=== PATIENT | female | born 1970 | race Caucasian/White ===

== ENCOUNTER 2020-03-18 04:51 | Day surgery (SDC) | payer OTHER ==
--- OUTSIDE RECORDS SUMMARY | 2020-03-17 13:01 | XMS ---
:1970 Author Organization [facility] Name Relationship Address Phone [facility] Unavailable [address] [place] [address] KOFI LEBRON [address] [facility] [place] [address] Re-disclosure Warning The records that you are about to access may contain information from federally- assisted alcohol or drug abuse programs. If such information is present, then the following federally mandated warning applies: This information has been disclosed to you from records protected by federal confidentiality rules (42 CFR part 2). The federal rules prohibit you from making any further disclosure of this information unless further disclosure is expressly permitted by the written consent of the person to whom it pertains or as otherwise permitted by 42 CFR part 2. A general authorization for the release of medical or other information is NOT sufficient for this purpose. The Federal rules restrict any use of the information to criminally investigate or prosecute any alcohol or drug abuse patient.The records that you are about to access may contain highly sensitive health information, the redisclosure of which is protected by Article 27-F of the [facility] Public Health law. If you continue you may haveaccess to information: Regarding HIV / AIDS; Provided by facilities licensed or operated by the [facility] Office of Mental Health; or Provided by the [facility] Office for People With Developmental Disabilities. If such information is present, then the following [facility] mandated warning applies: This information has been disclosed to you from confidential records which are protected by state law. State law prohibits you from making any further disclosure of this information without the specific written consent of the person to whom it pertains, or as otherwise permitted by law. Any unauthorized further disclosure in violation of state law may result in a fine or assisted sentence or both. A general authorization for the release of medical or other information is NOT sufficient authorization for further disclosure. Insurance Providers Payer name Policy type Policy ID Covered Covered libertarian's Policy P katty / Coverage libertarian ID relationship to [facility] type simmons [employer] [id number] SP [id number] 02 HEALTHCARE PPO 2 Results ID Date Data Source [id number] 03/13/2020 09:17:00 AM EDT [facility] Name Value Range Interpretation Description Data Sup porting Code Source(s) Document(s ) SARS [facility] coronavirus 2 RNA This lab was ordered by [facility] and reported by [facility]. ID Date Data Source [id number] 03/12/2020 11:15:00 AM EDT [facility] FASTING: UNKNOWNReceived: 03/12/2020 at 05:45:00 QTE: [facility], [place], [address], Vahe Weber MD Received: 03/12/2020 at 05:45:00 QTE : [facility], [address]Vahe MD Received: 03/12/2020 at 05:45:00 QTE : [facility], [address], Vahe Weber MD Received: 03/12/2020 at 05:45:00 QTE : [facility], [address]Vahe MD Received: 03/12/2020 at 05:45:00 QTE : [facility], [address]Vahe MD Received: 03/12/2020 at 05:45:00 QTE : [facility], [address]Vahe MD Received: 03/12/2020 at 05:45:00 QTE : [facility], [address]Vahe MD Received: 03/12/2020 at 05:45:00 QTE : [facility], [address], [place], [address], Vahe Weber MD Received: 03/12/2020 at 05:45:00 QTE : [facility], [address], [place], [address], Vahe Weber MD Received: 03/12/2020 at 05:45:00 QTE : [facility], [address], [place], [address], Vahe Weber MD Received: 03/12/2020 at 05:45:00 QTE : [facility], [address], [place], [address], Vahe Weber MD Received: 03/12/2020 at 05:45:00 QTE : [facility], [address], [place], [address], Vahe Weber MD Received: 03/12/2020 at 05:45:00 QTE : [facility], [address], [place], [address], Vahe Weber MDDNR Name Value Range Interpretation Code Description Data Lily rce(s) Supporting Document(s ) ID Date Data Source [id number] 03/12/2020 11:15:00 AM EDT [facility] FASTING: UNKNOWNReceived: 03/12/2020 at 05:45:00 QTE: [facility], [address], [place], [address], Vahe Weber MD Received: 03/12/2020 at 05:45:00 QTE : [facility], [address], [place], [address], Vahe Weebr MD Received: 03/12/2020 at 05:45:00 QTE : [facility], [address], [place], [address], Vahe Weber MD Received: 03/12/2020 at 05:45:00 QTE : [facility], [address], [place], [address], Vahe Weber MD Received: 03/12/2020 at 05:45:00 QTE : [facility], [address], [place], [address], Vahe Weber MD Received: 03/12/2020 at 05:45:00 QTE : [facility], [address], [place], [address], Vahe Weber MD Received: 03/12/2020 at 05:45:00 QTE : [facility], [address], [place], [address], Vahe Weber MD Received: 03/12/2020 at 05:45:00 QTE : [facility], [address], [place], [address], Vahe Weber MD Received: 03/12/2020 at 05:45:00 QTE : [facility], [address], [place], [address], Vahe Weber MD Received: 03/12/2020 at 05:45:00 QTE : [facility], [address], [place], [address], Vahe Weber MD Received: 03/12/2020 at 05:45:00 QTE : [facility], [address], [place], [address], Vahe Weber MD Received: 03/12/2020 at 05:45:00 QTE : [facility], [address], [place], [address], Vahe Weber MD Received: 03/12/2020 at 05:45:00 QTE : [facility], [address], [place], [address], Vahe Weber MDDNR Name Value Range Interpretation Description Data Source(s ) Supporting Code Document(s ) Cholesterol 223 <200 Above high normal [facility] [Mass/volume] mg/dL Diagnostics in Serum or Plasma ID Date Data Source [id number] 03/12/2020 11:15:00 AM EDT [facility] FASTING: UNKNOWNReceived: 03/12/2020 at 05:45:00 QTE: [facility], [address], [place], [address], Vahe Weber MD Received: 03/12/2020 at 05:45:00 QTE : [facility], [address], [place], [address], Vahe Weber MD Received: 03/12/2020 at 05:45:00 QTE : [facility], [address], [place], [address], Vahe Weber MD Received: 03/12/2020 at 05:45:00 QTE : [facility], [address], [place], [address], Vahe Weber MD Received: 03/12/2020 at 05:45:00 QTE : [facility], [address], [place], [address], Vahe Weber MD Received: 03/12/2020 at 05:45:00 QTE : [facility], [address], [place], [address], Vahe Weber MD Received: 03/12/2020 at 05:45:00 QTE : [facility], [address], [place], [address], Vahe Weber MD Received: 03/12/2020 at 05:45:00 QTE : [facility], [address], [place], [address], Vahe Weber MD Received: 03/12/2020 at 05:45:00 QTE : [facility], [address], [place], [address], Vahe Weber MD Received: 03/12/2020 at 05:45:00 QTE : [facility], [address], [place], [address]Vahe MD Received: 03/12/2020 at 05:45:00 QTE : [facility] [place], [address]Vahe MD Received: 03/12/2020 at 05:45:00 QTE : [facility] [place], [address]Vahe MD Received: 03/12/2020 at 05:45:00 QTE : [facility], [place], [address], Vahe Weber MDDNR Name Value Range Interpretation Description Data Source(s ) Supporting Code Document(s ) Cholesterol in 66 mg/dL Normal (applies [facility] HDL to non-numeric Diagnostics [Mass/volume] results) in Serum or Plasma Reference Range Male: > or = 40 Female: > or = 50 Unable to flag appropriately due to gender not provided. ID Date Data Source [id number] 03/12/2020 11:15:00 AM EDT [facility] FASTING: UNKNOWNReceived: 03/12/2020 at 05:45:00 QTE: [facility] [place], [address]Vahe MD Received: 03/12/2020 at 05:45:00 QTE : [facility] [place], [address]Vahe MD Received: 03/12/2020 at 05:45:00 QTE : [facility] [place], [address]Vahe MD Received: 03/12/2020 at 05:45:00 QTE : [facility] [place], [address]Vahe MD Received: 03/12/2020 at 05:45:00 QTE : [facility] [place], [address], Vahe Weber MD Received: 03/12/2020 at 05:45:00 QTE : [facility], [address], [place], [address], Vahe Weber MD Received: 03/12/2020 at 05:45:00 QTE : [facility], [address], [place], [address], Vahe Weber MD Received: 03/12/2020 at 05:45:00 QTE : [facility], [address], [place], [address], Vahe Weber MD Received: 03/12/2020 at 05:45:00 QTE : [facility], [address], [place], [address], Vahe Weber MD Received: 03/12/2020 at 05:45:00 QTE : [facility], [address], [place], [address], Vahe Weber MD Received: 03/12/2020 at 05:45:00 QTE : [facility], [address], [place], [address], Vahe Weber MD Received: 03/12/2020 at 05:45:00 QTE : [facility], [place], [address], Vahe Weber MD Received: 03/12/2020 at 05:45:00 QTE : [facility], [place], [address], Vahe Weber MDDNR Name Value Range Interpretation Description Data Source(s ) Supporting Code Document(s ) Triglyceride 94 mg/dL <150 Normal (applies [facility] [Mass/volume] to non-numeric Diagnostics in Serum or results) Plasma ID Date Data Source [id number] 03/12/2020 11:15:00 AM EDT [facility] FASTING: UNKNOWNReceived: 03/12/2020 at 05:45:00 QTE: [facility], [address], [place], [address], Vahe Weber MD Received: 03/12/2020 at 05:45:00 QTE : [facility], [address], [place], [address], Vahe Weber MD Received: 03/12/2020 at 05:45:00 QTE : [facility], [address], [place], [address], Vahe Weber MD Received: 03/12/2020 at 05:45:00 QTE : [facility], [address], [place], [address], Vahe Weber MD Received: 03/12/2020 at 05:45:00 QTE : [facility], [address], [place], [address], Vahe Weber MD Received: 03/12/2020 at 05:45:00 QTE : [facility], [address], [place], [address], Vahe Weber MD Received: 03/12/2020 at 05:45:00 QTE : [facility], [address], [place], [address], Vahe Weber MD Received: 03/12/2020 at 05:45:00 QTE : [facility], [address], [place], [address], Vahe Weber MD Received: 03/12/2020 at 05:45:00 QTE : [facility], [address], [place], [address], Vahe Weber MD Received: 03/12/2020 at 05:45:00 QTE : [facility], [address], [place], [address], Vahe Weber MD Received: 03/12/2020 at 05:45:00 QTE : [facility], [address], [place], [address]Vahe MD Received: 03/12/2020 at 05:45:00 QTE : [facility] [place], [address]Vahe MD Received: 03/12/2020 at 05:45:00 QTE : [facility] [place], [address], Vahe Weber MDDNR Name Value Range Interpretation Description Data Source(s ) Supporting Code Document(s ) Cholesterol in 137 Above high normal [facility] LDL mg/dL Diagnostics [Mass/volume] (calc) in Serum or Plasma by calculation Reference range: <100Desirable range <10 0 mg/dL for primary prevention;<70 mg/dL for patients with CHD or diabetic patientswi th > or = 2 CHD risk factors.LDL-C is now calculated using the Arlin lation, which is a validated novel method providingbetter accuracy than the Friede arnel equation in theestimation of LDL-C.Shaji SS et al. CONOR. 2013;310(19 ): [id number](http://education.Fobbler.com/faq/PWE149) ID Date Data Source [id number] 03/12/2020 11:15:00 AM EDT [facility] FASTING: UNKNOWNReceived: 03/12/2020 at 05:45:00 QTE: [facility] [place], [address]Vahe MD Received: 03/12/2020 at 05:45:00 QTE : [facility] [place], [address]Vahe MD Received: 03/12/2020 at 05:45:00 QTE : [facility], [address]Vahe MD Received: 03/12/2020 at 05:45:00 QTE : [place], [address]Vahe MD Received: 03/12/2020 at 05:45:00 QTE : [facility], [address], [place], [address], Vahe Weber MD Received: 03/12/2020 at 05:45:00 QTE : [facility], [address], [place], [address], Vahe Weber MD Received: 03/12/2020 at 05:45:00 QTE : [facility], [address], [place], [address], Vahe Weber MD Received: 03/12/2020 at 05:45:00 QTE : [facility], [address], [place], [address], Vahe Weber MD Received: 03/12/2020 at 05:45:00 QTE : [facility], [address], [place], [address], Vahe Weber MD Received: 03/12/2020 at 05:45:00 QTE : [facility], [address], [place], [address], Vahe Weber MD Received: 03/12/2020 at 05:45:00 QTE : [facility], [address], [place], [address], Vahe Weber MD Received: 03/12/2020 at 05:45:00 QTE : [facility], [address], [place], [address], Vahe Weber MD Received: 03/12/2020 at 05:45:00 QTE : [facility], [address], [place], [address], Vahe Weber MDDNR Name Value Range Interpretation Description Data Source(s ) Supporting Code Document(s ) Cholestero 3.4 <5.0 Normal (applies to [facility] l.total/Ch (calc) non-numeric Diagnostics olesterol results) in HDL [Mass Ratio] in Serum or Plasma ID Date Data Source [id number] 03/12/2020 11:15:00 AM EDT [facility] FASTING: UNKNOWNReceived: 03/12/2020 at 05:45:00 QTE: [facility], [address], [place], [address], Vahe Weber MD Received: 03/12/2020 at 05:45:00 QTE : [facility], [address], [place], [address], Vahe Weber MD Received: 03/12/2020 at 05:45:00 QTE : [facility], [address], [place], [address], Vahe Weber MD Received: 03/12/2020 at 05:45:00 QTE : [facility], [address], [place], [address], Vahe Weber MD Received: 03/12/2020 at 05:45:00 QTE : [facility], [address], [place], [address], Vahe Weber MD Received: 03/12/2020 at 05:45:00 QTE : [facility], [address], [place], [address], Vahe Weber MD Received: 03/12/2020 at 05:45:00 QTE : [facility], [address], [place], [address], Vahe Weber MD Received: 03/12/2020 at 05:45:00 QTE : [facility], [address], [place], [address], Vahe Weber MD Received: 03/12/2020 at 05:45:00 QTE : [facility], [address], [place], [address], Vahe Weber MD Received: 03/12/2020 at 05:45:00 QTE : [facility], [address], [place], [address]Vahe MD Received: 03/12/2020 at 05:45:00 QTE : [facility] [place], [address], Vahe Weber MD Received: 03/12/2020 at 05:45:00 QTE : [facility] [place], [address]Vahe MD Received: 03/12/2020 at 05:45:00 QTE : [facility], [address] [place], [address], Vahe Weber MDDNR Name Value Range Interpretation Description Data Source(s ) Supporting Code Document(s ) Cholesterol 157 <130 Above high normal [facility] non HDL mg/dL Diagnostics [Mass/volume] (calc) in Serum or Plasma For patients with diabetes plus 1 major ASCVD riskfactor, treating to a non-HDL-C goal of <100 mg/dL(LDL-C of <70 mg/dL) i s considered a therapeuticoption. ID Date Data Source [id number] 03/12/2020 11:15:00 AM EDT [facility] FASTING: UNKNOWNReceived: 03/12/2020 at 05:45:00 QTE: [facility] [place], [address]Vahe MD Received: 03/12/2020 at 05:45:00 QTE : [facility] [place], [address]Vahe MD Received: 03/12/2020 at 05:45:00 QTE : [facility] [place], [address]Vahe MD Received: 03/12/2020 at 05:45:00 QTE : [facility] [place], [address]Vahe MD Received: 03/12/2020 at 05:45:00 QTE : [facility], [address], [place], [address], Vahe Weber MD Received: 03/12/2020 at 05:45:00 QTE : [facility], [address], [place], [address], Vahe Weber MD Received: 03/12/2020 at 05:45:00 QTE : [facility], [address], [place], [address], Vahe Weber MD Received: 03/12/2020 at 05:45:00 QTE : [facility], [address], [place], [address], Vahe Weber MD Received: 03/12/2020 at 05:45:00 QTE : [facility], [address], [place], [address], Vahe Weber MD Received: 03/12/2020 at 05:45:00 QTE : [facility], [address], [place], [address], Vahe Weber MD Received: 03/12/2020 at 05:45:00 QTE : [facility], [address], [place], [address]Vahe MD Received: 03/12/2020 at 05:45:00 QTE : [facility], [address], [facility] [place], [address], Vahe Weber MD Received: 03/12/2020 at 05:45:00 QTE : [facility], [address], [place], [address], Vahe Weber MDDNR Name Value Range Interpretation Description Data Source(s ) Supporting Code Document(s ) Glucose 99 mg/dL 65-99 Normal (applies to [facility] [Mass/volum non-numeric Diagnostics e] in Serum results) or Plasma Fasting reference interval Urea nitrogen 12 mg/dL 7-25 Normal (applies to [facility]agn[facility] [Mass/volume] in Serum or non-numeric results) Plasma Creatinine [Mass/volume] 0.56 mg/dL Normal (applies to [facility] in Serum or Plasma non-numeric results) Age and/or gender not provided. Unable t o calculate eGFR. Reference Range Male: 0.70-1.33 Female: 0.50-1.05 Unable to flag appropriately due to gender not provided.For patients >49 years of age, the reference limitfor Creatinine is approxi mately 13% higher for peopleidentified as -Nauruan. Urea nitrogen/Creatinine NOT APPLICABLE 6-22 [facility] [Mass Ratio] in Serum or (calc) Plasma Sodium [Moles/volume] in 138 mmol/L 135-146 Normal Ques t Diagnostics Serum or Plasma (applies to non-numeric results) Potassium [Moles/volume] 4.4 mmol/L 3.5-5.3 Normal Q[facility] t [facility] in Serum or Plasma (applies to non-numeric results) Chloride [Moles/volume] in 106 mmol/L 98-110 Normal Qu est [facility]ostics Serum or Plasma (applies to non-numeric results) Carbon dioxide, total 29 mmol/L 20-32 Normal [facility] Di [facility] [Moles/volume] in Serum or (applies to Plasma non-numeric results) Calcium [Mass/volume] in 9.3 mg/dL Normal [facility] Serum or Plasma (applies to non-numeric results) Reference Range Male: 8.6-10.3 Female: 8.6-10.4 Unable to flag appropriately due to gender not provided. Protein [Mass/volume] 6.5 g/dL 6.1-8.1 Normal (applies to [facility] in Serum or Plasma non-numeric results) Albumin [Mass/volume] 3.7 g/dL 3.6-5.1 Normal (applies to [facility] in Serum or Plasma non-numeric results) Globulin [Mass/volume] 2.8 g/dL 1.9-3.7 Normal (applies to [facility] in Serum by (calc) non-numeric results) calculation Albumin/Globulin [Mass 1.3 (calc) 1.0-2.5 Normal (applies to [facility] Ratio] in Serum or non-numeric results) Plasma Bilirubin.total 0.2 mg/dL 0.2-1.2 Normal (applies to [facility] [Mass/volume] in Serum non-numeric results) or Plasma Alkaline phosphatase 90 U/L Normal (applies to [facility] [Enzymatic non-numeric results) activity/volume] in Serum or Plasma Reference Range Male: 35-144 Female: 37-153 Unable to flag appropriately du e to gender not provided. Aspartate aminotransferase 11 U/L 10-35 Normal (applies to [facility] [Enzymatic activity/volume] non-numeric results) in Serum or Plasma Alanine aminotransferase 7 U/L Normal (applies to [facility] [Enzymatic activity/volume] non-numeric results) in Serum or Plasma Reference range Male: 9-46 Female: 6-29 Unable to flag appropriately due to ge nder not provided. ID Date Data Source [id number] 03/12/2020 11:15:00 AM EDT [facility] FASTING: UNKNOWNReceived: 03/12/2020 at 05:45:00 QTE: [facility], [place], [address], Vahe Weber MD Received: 03/12/2020 at 05:45:00 QTE : [facility], [address], Vahe Weber MD Received: 03/12/2020 at 05:45:00 QTE : [facility], [address], Vahe Weber MD Received: 03/12/2020 at 05:45:00 QTE : [facility], [address]Vahe MD Received: 03/12/2020 at 05:45:00 QTE : [facility], [address]Vahe MD Received: 03/12/2020 at 05:45:00 QTE : [facility], [address]Vahe MD Received: 03/12/2020 at 05:45:00 QTE : [facility], [address]Vahe MD Received: 03/12/2020 at 05:45:00 QTE : [facility], [address], [place], [address], Vahe Weber MD Received: 03/12/2020 at 05:45:00 QTE : [facility], [place], [address], Vahe Weber MD Received: 03/12/2020 at 05:45:00 QTE : [facility], [address], [place], [address], Vahe Weber MD Received: 03/12/2020 at 05:45:00 QTE : [facility], [place], [address], Vahe Weber MD Received: 03/12/2020 at 05:45:00 QTE : [facility], [place], [address]Vahe MD Received: 03/12/2020 at 05:45:00 QTE : [facility], [place], [address], Vahe Weber MDDNR Name Value Range Interpretation Description Data Source(s ) Supporting Code Document(s ) aPTT in 26 sec 22-34 Normal (applies [facility] Platelet poor to non-numeric Diagnostics plasma by results) Coagulation assay This test has not been validated for mon itoringunfractionated heparin therapy. For testing thatis validated for this type o f therapy, please referto the Heparin Anti-Xa assay (test code 78402).For additional i nformation, please refer tohttp://education.Live Matrix/ faq/BIM480(This link is being provided forinformational/educational purposes on ly.) ID Date Data Source [id number] 03/12/2020 11:15:00 AM EDT [facility] FASTING: UNKNOWNReceived: 03/12/2020 at 05:45:00 QTE: [facility], [place], [address]Vahe MD Received: 03/12/2020 at 05:45:00 QTE : [facility], [address], [place], [address], Vahe Weber MD Received: 03/12/2020 at 05:45:00 QTE : [facility], [address], [place], [address], Vahe Weber MD Received: 03/12/2020 at 05:45:00 QTE : [facility], [address], [place], [address], Vahe Weber MD Received: 03/12/2020 at 05:45:00 QTE : [facility], [address], [place], [address], Vahe Weber MD Received: 03/12/2020 at 05:45:00 QTE : [facility], [address], [place], [address], Vahe Weber MD Received: 03/12/2020 at 05:45:00 QTE : [facility], [address], [place], [address], Vahe Weber MD Received: 03/12/2020 at 05:45:00 QTE : [facility], [address], [place], [address], Vahe Weber MD Received: 03/12/2020 at 05:45:00 QTE : [facility], [address], [place], [address], Vahe Weber MD Received: 03/12/2020 at 05:45:00 QTE : [facility], [address], [place], [address], Vahe Weber MD Received: 03/12/2020 at 05:45:00 QTE : [facility], [address], [place], [address], Vahe Weber MD Received: 03/12/2020 at 05:45:00 QTE : [facility], [address], [place], [address], Vahe Weber MD Received: 03/12/2020 at 05:45:00 QTE : [facility], [address], [place], [address], Vahe Weber MDDNR Name Value Range Interpretation Description Data Sup porting Code Source(s) Document(s ) Leukocytes 7.7 3.8-10. Normal (applies [facility] [#/volume] in Thousand 8 to non-numeric Diagnostics Blood by /uL results) Automated count Erythrocytes 4.48 4.20-5. Normal (applies [facility] [#/volume] in Million/ 10 to non-numeric Diagnostics Blood by uL results) Automated count Hemoglobin 10.8 13.2-15 Below low normal [facility] [Mass/volume] in g/dL .5 Diagnostics Blood Hematocrit 35.1 % 38.5-45 Below low normal [facility] [Volume .0 Diagnostics Fraction] of Blood by Automated count Erythrocyte mean 78.3 fL 80.0-10 Below low normal [facility] corpuscular 0.0 Diagnostics volume [Entitic volume] by Automated count Erythrocyte mean 24.1 pg 27.0-33 Below low normal [facility] corpuscular .0 Diagnostics hemoglobin [Entitic mass] by Automated count Erythrocyte mean 30.8 32.0-36 Below low normal [facility] corpuscular g/dL .0 Diagnostics hemoglobin concentration [Mass/volume] by Automated count Erythrocyte 15.6 % 11.0-15 Above high [facility] distribution .0 normal Diagnostics width [Ratio] by Automated count Platelets 403 140-400 Above high [facility] [#/volume] in Thousand normal Diagnostics Blood by /uL Automated count Platelet mean 11.5 fL 7.5-12. Normal (applies [facility] volume [Entitic 5 to non-numeric Diagnosti cs volume] in Blood results) by Jr Neutrophils 5344 1500-78 Normal (applies [facility] [#/volume] in cells/uL 00 to non-numeric Diagnostics Blood by results) Automated count Lymphocytes 1579 850-390 Normal (applies [facility] [#/volume] in cells/uL 0 to non-numeric Diagnostics Blood by results) Automated count Monocytes 570 200-950 Normal (applies [facility] [#/volume] in cells/uL to non-numeric Diagnostics Blood by results) Automated count Eosinophils 146 15-500 Normal (applies [facility] [#/volume] in cells/uL to non-numeric Diagnostics Blood by results) Automated count Basophils 62 0-200 Normal (applies [facility] [#/volume] in cells/uL to non-numeric Diagnostics Blood by results) Automated count Neutrophils/100 69.4 % 38-80 Normal (applies [facility] leukocytes in to non-numeric Diagnostics Blood by results) Automated count Lymphocytes/100 20.5 % 15-49 Normal (applies [facility] leukocytes in to non-numeric Diagnostics Blood by results) Automated count Monocytes/100 7.4 % 0-13 Normal (applies [facility] leukocytes in to non-numeric Diagnostics Blood by results) Automated count Eosinophils/100 1.9 % 0-8 Normal (applies [facility] leukocytes in to non-numeric Diagnostics Blood by results) Automated count Basophils/100 0.8 % 0-2 Normal (applies [facility] leukocytes in to non-numeric Diagnostics Blood by results) Automated count ID Date Data Source [id number] 03/12/2020 11:15:00 AM EDT [facility] FASTING: UNKNOWNReceived: 03/12/2020 at 05:45:00 QTE: [facility], [place], [address], Vahe Weber MD Received: 03/12/2020 at 05:45:00 QTE : [facility], [place], [address], Vahe Weber MD Received: 03/12/2020 at 05:45:00 QTE : [facility], [address], Vahe Weber MD Received: 03/12/2020 at 05:45:00 QTE : [facility], [address], Vahe Weber MD Received: 03/12/2020 at 05:45:00 QTE : [facility], [address], Vahe Weber MD Received: 03/12/2020 at 05:45:00 QTE : [facility], [place], [address], Vahe Weber MD Received: 03/12/2020 at 05:45:00 QTE : [facility], [place], [address], Vahe Weber MD Received: 03/12/2020 at 05:45:00 QTE : [facility], [address], [place], [address], Vahe Weber MD Received: 03/12/2020 at 05:45:00 QTE : [facility], [place], [address], Vahe Weber MD Received: 03/12/2020 at 05:45:00 QTE : [facility], [place], [address]Vahe MD Received: 03/12/2020 at 05:45:00 QTE : [facility], [address], [place], [address]Vahe MD Received: 03/12/2020 at 05:45:00 QTE : [facility], [place], [address]Vahe MD Received: 03/12/2020 at 05:45:00 QTE : [facility], [place], [address], Vahe Weber MDDNR Name Value Range Interpretation Description Data Source(s ) Supporting Code Document(s ) INR in Platelet 1.0 Normal (applies to [facility] poor plasma by non-numeric Diagnostics Coagulation results) assay Reference Range 0.9- 1.1Moderate-intensity Warfarin Therapy 2.0-3.0Higher-intensity Warfarin Therapy 3.0-4.0 Prothrombin time (PT) 10.4 sec 9.0-11.5 Normal (applies to [facility] non-numeric results) For more information on this test, go to:http://education.[employer] /faq/IAF351 ID Date Data Source [id number] 03/12/2020 11:15:00 AM EDT [facility] FASTING: UNKNOWNReceived: 03/12/2020 at 05:45:00 QTE: [facility], [address], [place], [address], Vahe Weber MD Received: 03/12/2020 at 05:45:00 QTE : [facility], [address], [place], [address], Vahe Weber MD Received: 03/12/2020 at 05:45:00 QTE : [facility], [address], [place], [address], Vahe Weber MD Received: 03/12/2020 at 05:45:00 QTE : [facility], [address], [place], [address], Vahe Weber MD Received: 03/12/2020 at 05:45:00 QTE : [facility], [address], [place], [address], Vahe Weber MD Received: 03/12/2020 at 05:45:00 QTE : [facility], [address], [place], [address], Vahe Weber MD Received: 03/12/2020 at 05:45:00 QTE : [facility], [address], [place], [address], Vahe Weber MD Received: 03/12/2020 at 05:45:00 QTE : [facility], [address], [place], [address], Vahe Weber MD Received: 03/12/2020 at 05:45:00 QTE : [facility], [address], [place], [address], Vahe Weber MD Received: 03/12/2020 at 05:45:00 QTE : [facility], [address], [place], [address]Vahe MD Received: 03/12/2020 at 05:45:00 QTE : [facility] [place], [address]Vahe MD Received: 03/12/2020 at 05:45:00 QTE : [facility] [address] [place], [address]Vahe Smiley MD Received: 03/12/2020 at 05:45:00 QTE : [facility], [address] [place], [address]Vahe MDDNR Name Value Range Interpretation Description Data Source(s ) Supporting Code Document(s ) Hemoglobin 5.5 % of <5.7 Normal (applies [facility] A1c/Hemoglobin total to non-numeric Diagnostic s .total in Hgb results) Blood For the purpose of screening for the pre sence ofdiabetes:<5.7% Consistent with the absence of diabetes5.7-6.4% Consi stent with increased risk for diabetes (prediabetes)> or =6.5% Consistent with diabetesThis assay result is consistent with a decreased riskof diabetes.Current ly, no consensus exists regarding use ofhemoglobin A1c for diagnosis of diabet es in children.According to [place] [employer] (ADA)guidelines, hemoglobin A1c <7.0% represents optimalcontrol in non- diabetic patients. Differen tmetrics may apply to specific patient populations.Standards of Medical Care in Diabetes(ADA). ID Date Data Source [id number] 03/12/2020 11:15:00 AM EDT [facility] FASTING: UNKNOWNReceived: 03/12/2020 at 05:45:00 QTE: [facility] [place], [address]Vahe MD Received: 03/12/2020 at 05:45:00 QTE : [facility] [place], [address]Vahe MD Received: 03/12/2020 at 05:45:00 QTE : [facility], [address], [place], [address], Vahe Weber MD Received: 03/12/2020 at 05:45:00 QTE : [facility], [address], [place], [address], Vahe Weber MD Received: 03/12/2020 at 05:45:00 QTE : [facility], [address], [place], [address], Vahe Weber MD Received: 03/12/2020 at 05:45:00 QTE : [facility], [address], [place], [address], Vahe Weber MD Received: 03/12/2020 at 05:45:00 QTE : [facility], [address], [place], [address], Vahe Weber MD Received: 03/12/2020 at 05:45:00 QTE : [facility], [address], [place], [address], Vahe Weber MD Received: 03/12/2020 at 05:45:00 QTE : [facility], [address], [place], [address], Vahe Weber MD Received: 03/12/2020 at 05:45:00 QTE : [facility], [address], [place], [address], Vahe Weber MD Received: 03/12/2020 at 05:45:00 QTE : [facility], [address], [place], [address], Vahe Weber MD Received: 03/12/2020 at 05:45:00 QTE : [facility], [address], [place], [address], Vahe Weber MD Received: 03/12/2020 at 05:45:00 QTE : [facility], [address], [place], [address], [facility] Name Value Range Interpretation Code Description Data Lily rce(s) Supporting Document(s ) Color of YELLOW Normal (applies to [facility] Urine non-numeric Diagnostics results) The preferred specimen for urinalysis is urinepreserved using a [facility] standard urine preservativetube (yellow capped, blue ba nd) that may be obtainedfrom your [facility] supplier.Please review resul ts with caution. Urinalysistesting on unpreserved urine may produce alteration of chemical constituents and deterioration of formedelements. Appearance of Urine CLEAR CLEAR Normal (applies to [facility] non-numeric results) Specific gravity of 1.007 1.001-1.035 Normal (applies to [facility] Urine by Test strip non-numeric results) pH of Urine by Test 7.5 5.0-8.0 Normal (applies to [facility] strip non-numeric results) Glucose [Presence] NEGATIVE NEGATIVE Normal (applies to [facility] in Urine by Test non-numeric strip results) Bilirubin.total NEGATIVE NEGATIVE Normal (applies to [facility] [Presence] in Urine non-numeric by Test strip results) Ketones [Presence] NEGATIVE NEGATIVE Normal (applies to [facility] in Urine by Test non-numeric strip results) Hemoglobin NEGATIVE NEGATIVE Normal (applies to [facility] [Presence] in Urine non-numeric by Test strip results) Protein [Presence] NEGATIVE NEGATIVE Normal (applies to [facility] in Urine by Test non-numeric strip results) Nitrite [Presence] NEGATIVE NEGATIVE Normal (applies to [facility] in Urine by Test non-numeric strip results) Leukocyte esterase 3+ NEGATIVE Abnormal (applies [facility] [Presence] in Urine to non-numeric by Test strip results) Leukocytes [#/area] 20-40 /HPF < OR = 5 Abnormal (applies [facility] in Urine sediment to non-numeric by Microscopy high results) power field Erythrocytes NONE SEEN /HPF < OR = 2 Normal (applies to [facility] [#/area] in Urine non-numeric sediment by results) Microscopy high power field Epithelial 0-5 /HPF < OR = 5 [facility] cells.squamous [#/area] in Urine sediment by Microscopy high power field Bacteria [#/area] FEW /HPF NONE SEEN Abnormal (applies Ques t Diagnostics in Urine sediment to non-numeric by Microscopy high results) power field Hyaline casts NONE SEEN /LPF NONE SEEN Normal (applies to [facility] [#/area] in Urine non-numeric sediment by results) Microscopy low power field Procedure
[2020-03-17 16:36] VITALS: BMI 26.5
--- OUTSIDE RECORDS SUMMARY | 2020-03-18 04:55 | XMS ---
:1970 Author Organization [facility] Support Name Relationship Address Phone ANI CHARLES SISTER [address] [facility] [place] [address] FRIENDLY'S Unavailable [address] [address] KOFI LEBRON [address] [place] [address] Re-disclosure Warning The records that you are [...] is protected by Article 27-F of the [facility] Public Health law. If you continue you may haveaccess to information: Regarding HIV / AIDS; Provided by facilities licensed or operated by the [facility] Office of Mental Health; or Provided by the [facility] Office for People With Developmental Disabilities. If such information is present, then the following [facility] mandated warning applies: This information has been [...] law may result in a fine or chcf sentence or both. A general authorization for the release of medical or other information is NOT sufficient authorization for further disclosure. Insurance Providers Payer name Policy type Policy ID Covered Covered democrat's Policy P katty / Coverage democrat ID relationship to [facility] ormation type simmons C[employer] [id number] SP [id number] 02 HEALTHCARE PPO 2 CIGNA [id number] SP [id number] 02 HEALTHCARE PPO 2 Results ID Date Data Source [id number] 03/13/2020 09:17:00 AM EDT [facility] Name Value Range Interpretation Description Data Sup porting Code Source(s) Document(s ) SARS [facility] coronavirus 2 RNA This lab was ordered by [facility] and reported by [facility]. ID Date Data Source [id number] 03/12/2020 11:15:00 AM EDT [facility] FASTING: UNKNOWNReceived: 03/12/2020 at 05:45:00 QTE: [facility], [address]Vahe MD Received: 03/12/2020 at 05:45:00 QTE : [place], [address]Vahe MD Received: 03/12/2020 at 05:45:00 QTE : [facility] [place], [address]Vahe MD Received: 03/12/2020 at 05:45:00 QTE : [place], [address]Vahe MD Received: 03/12/2020 at 05:45:00 QTE : [place], [address]Vahe MD Received: 03/12/2020 at 05:45:00 QTE : [place], [address]Vahe MD Received: 03/12/2020 at 05:45:00 QTE : [facility], [address], [place], [address], Vahe Weber MD Received: 03/12/2020 at 05:45:00 QTE : [facility], [address], [place], [address], Vahe Weber MD Received: 03/12/2020 at 05:45:00 QTE : [facility], [address], [place], [address], Vahe Weber MD Received: 03/12/2020 at 05:45:00 QTE : [facility], [address], [place], [address], Vahe Weber MD Received: 03/12/2020 at 05:45:00 QTE : [facility], [address], [place], [address], Vahe Weber MD Received: 03/12/2020 at 05:45:00 QTE : [facility], [address], [place], [address], Vahe Weber MD Received: 03/12/2020 at 05:45:00 QTE : [facility], [address], [place], [address], Vahe Weber MDDNR Name Value Range Interpretation Code Description Data Lily rce(s) Supporting Document(s ) ID Date Data Source [id number] 03/12/2020 11:15:00 AM EDT [facility] FASTING: UNKNOWNReceived: 03/12/2020 at 05:45:00 QTE: [facility], Thomas [address] K[address], [place], [address], Vahe Weber MD Received: 03/12/2020 at 05:45:00 QTE : [facility], [address], [place], [address], Vahe Weber MD Received: 03/12/2020 at 05:45:00 QTE : [facility], [address], [place], [address], Vahe Weber MD Received: 03/12/2020 at 05:45:00 QTE : [facility], [address], [place], [address], Vahe Weber MD Received: 03/12/2020 at 05:45:00 QTE : [facility], [address], [place], [address], Vahe Weber MD Received: 03/12/2020 at 05:45:00 QTE : [facility], [address], [place], [address], Vahe Weber MD Received: 03/12/2020 at 05:45:00 QTE : [facility], [address], [place], [address], Vahe Weber MD Received: 03/12/2020 at 05:45:00 QTE : [facility], [address], [place], [address], Vahe Weber MD Received: 03/12/2020 at 05:45:00 QTE : [facility], [address], [place], [address], Vahe Weber MD Received: 03/12/2020 at 05:45:00 QTE : [facility], [address], [place], [address], Vahe Weber MD Received: 03/12/2020 at 05:45:00 QTE : [facility], [address], [place], [address], Vahe Weber MD Received: 03/12/2020 at 05:45:00 QTE : [facility], [address], [place], [address], Vahe Weber MD Received: 03/12/2020 at 05:45:00 QTE : [facility], [address], [place], [address], Vahe Weber MDDNR Name Value Range Interpretation Description Data Source(s ) Supporting Code Document(s ) Cholesterol 223 <200 Above high normal [facility] [Mass/volume] mg/dL Diagnostics in Serum or Plasma ID Date Data Source [id number] 03/12/2020 11:15:00 AM EDT [facility] FASTING: UNKNOWNReceived: 03/12/2020 at 05:45:00 QTE: [facility], Thomas Thompsonzack[address] Carter, [place], [address], Vahe Weber MD Received: 03/12/2020 at 05:45:00 QTE : [facility], [place], [address], Vahe Weber MD Received: 03/12/2020 at 05:45:00 QTE : [facility], [place], [address], Vahe Weber MD Received: 03/12/2020 at 05:45:00 QTE : [facility], [place], [address], Vahe Weber MD Received: 03/12/2020 at 05:45:00 QTE : [facility], [place], [address], Vahe Weber MD Received: 03/12/2020 at 05:45:00 QTE : [facility], [place], [address], Vahe Weber MD Received: 03/12/2020 at 05:45:00 QTE : [facility], [place], [address], Vahe Weber MD Received: 03/12/2020 at 05:45:00 QTE : [facility], [place], [address], Vahe Weber MD Received: 03/12/2020 at 05:45:00 QTE : [facility], Thomas Martinez Emma, [place], [address]Vahe MD Received: 03/12/2020 at 05:45:00 QTE : [facility], Thomas Martinez Juliojustyn, [place], [address]Vahe MD Received: 03/12/2020 at 05:45:00 QTE : [facility], Thomas Martinez Emma, [place], [address]Vahe MD Received: 03/12/2020 at 05:45:00 QTE : [facility], [place], [address]Vahe MD Received: 03/12/2020 at 05:45:00 QTE : [facility], [place], [address], Vahe Weber MDDNR Name Value Range Interpretation Description Data Source(s ) Supporting Code Document(s ) Cholesterol in 66 mg/dL Normal (applies [facility] HDL to non-numeric Diagnostics [Mass/volume] results) in Serum or Plasma Reference Range Male: > or = 40 Female: > or = 50 Unable to flag appropriately due to gender not provided. ID Date Data Source [id number] 03/12/2020 11:15:00 AM EDT [facility] FASTING: UNKNOWNReceived: 03/12/2020 at 05:45:00 QTE: [facility], [address]Vahe MD Received: 03/12/2020 at 05:45:00 QTE : [facility], [address]Vahe MD Received: 03/12/2020 at 05:45:00 QTE : [facility], [address]Vahe MD Received: 03/12/2020 at 05:45:00 QTE : [facility], [address], Vahe Weber MD Received: 03/12/2020 at 05:45:00 QTE : [facility], Thomas Carter, [place], [address], Vahe Weber MD Received: 03/12/2020 at 05:45:00 QTE : [facility], Thomas Carter, [place], [address], Vahe Weber MD Received: 03/12/2020 at 05:45:00 QTE : [facility], Thomas Carter, [place], [address], Vahe Weber MD Received: 03/12/2020 at 05:45:00 QTE : [facility], [place], [address], Vahe Weber MD Received: 03/12/2020 at 05:45:00 QTE : [facility], Thomas [address], [place], [address], Vahe Weber MD Received: 03/12/2020 at 05:45:00 QTE : [facility], [place], [address], Vahe Weber MD Received: 03/12/2020 at 05:45:00 QTE : [facility], [place], [address], Vahe Weber MD Received: 03/12/2020 at 05:45:00 QTE : [facility], [place], [address], Vahe Weber MD Received: 03/12/2020 at 05:45:00 QTE : [facility], Thomas [address], [place], [address], Vahe Weber MDDNR Name Value Range Interpretation Description Data Source(s ) Supporting Code Document(s ) Triglyceride 94 mg/dL <150 Normal (applies [facility] [Mass/volume] to non-numeric Diagnostics in Serum or results) Plasma ID Date Data Source [id number] 03/12/2020 11:15:00 AM EDT [facility] FASTING: UNKNOWNReceived: 03/12/2020 at 05:45:00 QTE: [facility], [address], [place], [address], Vahe Weber MD Received: 03/12/2020 at 05:45:00 QTE : [facility], [address], [place], [address], Vahe Weber MD Received: 03/12/2020 at 05:45:00 QTE : [facility], [address], [place], [address], Vahe Weber MD Received: 03/12/2020 at 05:45:00 QTE : [facility], [address], [place], [address], Vahe Weber MD Received: 03/12/2020 at 05:45:00 QTE : [facility], [address], [place], [address], Vahe Weber MD Received: 03/12/2020 at 05:45:00 QTE : [facility], [address], [place], [address], Vahe Weber MD Received: 03/12/2020 at 05:45:00 QTE : [facility], [address], [place], [address], Vahe Weber MD Received: 03/12/2020 at 05:45:00 QTE : [facility], [address], [place], [address], Vahe Weber MD Received: 03/12/2020 at 05:45:00 QTE : [facility], [address], [place], [address], Vahe Weber MD Received: 03/12/2020 at 05:45:00 QTE : [facility], [address], [place], [address]Vahe MD Received: 03/12/2020 at 05:45:00 QTE : [facility] [place], [address]Vahe MD Received: 03/12/2020 at 05:45:00 QTE : [facility] [place], [address]Vahe MD Received: 03/12/2020 at 05:45:00 QTE : [facility], Thomas Martinez Jul[place]yn [place], [address]Vahe MDDNR Name Value Range Interpretation Description Data [...] LDL-C.Shaji SS et al. CONOR. 2013;310(19 ): [id number](http://education.[facility].com/faq/RNM024) ID Date Data Source [id number] 03/12/2020 11:15:00 AM EDT [facility] FASTING: UNKNOWNReceived: 03/12/2020 at 05:45:00 QTE: [facility] [place], [address]Vahe MD Received: 03/12/2020 at 05:45:00 QTE : [facility] [place], [address]Vahe MD Received: 03/12/2020 at 05:45:00 QTE : [facility] [place], [address], Vahe Weber MD Received: 03/12/2020 at 05:45:00 QTE : [facility], [address], [place], [address], Vahe Weber MD Received: 03/12/2020 at 05:45:00 QTE : [facility], [address], [place], [address], Vahe Weber MD Received: 03/12/2020 at 05:45:00 QTE : [facility], [address], [place], [address], Vahe Weber MD Received: 03/12/2020 at 05:45:00 QTE : [facility], [address], [place], [address], Vahe Weber MD Received: 03/12/2020 at 05:45:00 QTE : [facility], [address], [place], [address], Vahe Weber MD Received: 03/12/2020 at 05:45:00 QTE : [facility], [address], [place], [address], Vahe Weber MD Received: 03/12/2020 at 05:45:00 QTE : [facility], [address], [place], [address], Vahe Weber MD Received: 03/12/2020 at 05:45:00 QTE : [facility], [address], [place], [address], Vahe Weber MD Received: 03/12/2020 at 05:45:00 QTE : [facility], [address], [place], [address], Vahe Weber MD Received: 03/12/2020 at 05:45:00 QTE : [facility], [address], [place], [address]Vahe MDDNR Name Value Range Interpretation Description Data Source(s ) Supporting Code Document(s ) Cholestero 3.4 <5.0 Normal (applies to [facility] l.total/Ch (calc) non-numeric Diagnostics olesterol results) in HDL [Mass Ratio] in Serum or Plasma ID Date Data Source [id number] 03/12/2020 11:15:00 AM EDT [facility] FASTING: UNKNOWNReceived: 03/12/2020 at 05:45:00 QTE: [facility], [place], [address], Vahe Weber MD Received: 03/12/2020 at 05:45:00 QTE : [facility], [place], [address], Vahe Weber MD Received: 03/12/2020 at 05:45:00 QTE : [facility], [place], [address], Vahe Weber MD Received: 03/12/2020 at 05:45:00 QTE : [facility], [place], [address], Vahe Weber MD Received: 03/12/2020 at 05:45:00 QTE : [facility], [place], [address], Vahe Weber MD Received: 03/12/2020 at 05:45:00 QTE : [facility], [place], [address], Vahe Weber MD Received: 03/12/2020 at 05:45:00 QTE : [facility], [place], [address], Vahe Weber MD Received: 03/12/2020 at 05:45:00 QTE : [facility], [place], [address], Vahe Weber MD Received: 03/12/2020 at 05:45:00 QTE : [facility], Thomas Carter, [place], [address], Vahe Weber MD Received: 03/12/2020 at 05:45:00 QTE : [facility], Thomas Carter, [place], [address]Vahe MD Received: 03/12/2020 at 05:45:00 QTE : [facility], Thomas Martinez Juliojustyn, [place], [address], Vahe Weber MD Received: 03/12/2020 at 05:45:00 QTE : [facility], Thomas Martinez Juliojustyn, [place], [address]Vahe MD Received: 03/12/2020 at 05:45:00 QTE : [facility], Thomas Carter, [place], [address], Vahe Weber MDDNR Name Value Range Interpretation Description Data Source(s ) Supporting Code Document(s ) Cholesterol 157 <130 Above high normal [facility] non HDL mg/dL Diagnostics [Mass/volume] (calc) in Serum or Plasma For patients with diabetes plus 1 major ASCVD riskfactor, treating to a non-HDL-C goal of <100 mg/dL(LDL-C of <70 mg/dL) i s considered a therapeuticoption. ID Date Data Source [id number] 03/12/2020 11:15:00 AM EDT [facility] FASTING: UNKNOWNReceived: 03/12/2020 at 05:45:00 QTE: [facility], [address]Vahe MD Received: 03/12/2020 at 05:45:00 QTE : [facility], [address]Vahe MD Received: 03/12/2020 at 05:45:00 QTE : [facility] [place], [address]Vahe MD Received: 03/12/2020 at 05:45:00 QTE : [facility], [address], [place], [address], Vahe Weber MD Received: 03/12/2020 at 05:45:00 QTE : [facility], [address], [place], [address], Vahe Weber MD Received: 03/12/2020 at 05:45:00 QTE : [facility], [address], [place], [address], Vahe Weber MD Received: 03/12/2020 at 05:45:00 QTE : [facility], [address], [place], [address], Vahe Weber MD Received: 03/12/2020 at 05:45:00 QTE : [facility], [address], [place], [address], Vahe Weber MD Received: 03/12/2020 at 05:45:00 QTE : [facility], [address], [place], [address], Vahe Weber MD Received: 03/12/2020 at 05:45:00 QTE : [facility], [address], [place], [address], Vahe Weber MD Received: 03/12/2020 at 05:45:00 QTE : [facility], [address], [place], [address], Vahe Weber MD Received: 03/12/2020 at 05:45:00 QTE : [facility], [address], [place], [address], Vahe Weber MD Received: 03/12/2020 at 05:45:00 QTE : [facility], [address], [place], [address], Vahe Weber MDDNR Name Value Range Interpretation [...] approxi mately 13% higher for peopleidentified as -South African. Urea nitrogen/Creatinine NOT APPLICABLE 6-22 [facility] [...] Bilirubin.total 0.2 mg/dL 0.2-1.2 Normal (applies to [facility] [Mass/volume] in Serum non-numeric results) or Plasma Alkaline phosphatase 90 U/L Normal (applies to [facility] [Enzymatic non-numeric results) activity/volume] in Serum or Plasma Reference Range Male: 35-144 Female: 37-153 Unable to flag appropriately du e to gender not provided. Aspartate aminotransferase 11 U/L 10-35 Normal (applies to [facility] [Enzymatic activity/volume] non-numeric results) in Serum or Plasma Alanine aminotransferase 7 U/L Normal (applies to [facility] [Enzymatic activity/volume] non-numeric results) in Serum or Plasma Reference range Male: 9-46 Female: 6-29 Unable to flag appropriately due to ge nder not provided. ID Date Data Source [id number] 03/12/2020 11:15:00 AM EDT [facility] FASTING: UNKNOWNReceived: 03/12/2020 at 05:45:00 QTE: [facility], [address], Vahe Weber MD Received: 03/12/2020 at 05:45:00 QTE : [place], [address], Vahe Weber MD Received: 03/12/2020 at 05:45:00 QTE : [place], [address]Vahe MD Received: 03/12/2020 at 05:45:00 QTE : [facility], [address]Vahe MD Received: 03/12/2020 at 05:45:00 QTE : [place], [address]Vahe MD Received: 03/12/2020 at 05:45:00 QTE : [place], [address]Vahe Smiley MD Received: 03/12/2020 at 05:45:00 QTE : [facility], Thomas Carter, [place], [address], Vahe Weber MD Received: 03/12/2020 at 05:45:00 QTE : [facility], [place], [address]Vahe MD Received: 03/12/2020 at 05:45:00 QTE : [facility], Thomas [address], [place], [address], Vahe Weber MD Received: 03/12/2020 at 05:45:00 QTE : [facility], Thomas Carter, [place], [address]Vahe MD Received: 03/12/2020 at 05:45:00 QTE : [facility], Thomas Carter, [place], [address]Vahe MD Received: 03/12/2020 at 05:45:00 QTE : [facility], Thomas Carter, [place], [address]Vahe MD Received: 03/12/2020 at 05:45:00 QTE : [facility], [place], [address], Vahe Weber MDDNR Name Value Range Interpretation Description Data Source(s ) Supporting Code Document(s ) aPTT in 26 sec 22-34 Normal (applies [facility] Platelet poor to non-numeric Diagnostics plasma by results) Coagulation assay This test has not been validated for mon itoringunfractionated heparin therapy. For testing thatis validated for this type o f therapy, please referto the Heparin Anti-Xa assay (test code 28462).For additional i nformation, please refer tohttp://education.Twitpay.LendFriend/ faq/LXN109(This link is being provided forinformational/educational purposes on ly.) ID Date Data Source [id number] 03/12/2020 11:15:00 AM EDT [facility] FASTING: UNKNOWNReceived: 03/12/2020 at 05:45:00 QTE: [facility], [address], [place], [address], Vahe Weber MD Received: 03/12/2020 at 05:45:00 QTE : [facility], [address], [place], [address], Vahe Weber MD Received: 03/12/2020 at 05:45:00 QTE : [facility], [address], [place], [address], Vahe Weber MD Received: 03/12/2020 at 05:45:00 QTE : [facility], [address], [place], [address], Vahe Weber MD Received: 03/12/2020 at 05:45:00 QTE : [facility], [address], [place], [address], Vahe Weber MD Received: 03/12/2020 at 05:45:00 QTE : [facility], [address], [place], [address], Vahe Weber MD Received: 03/12/2020 at 05:45:00 QTE : [facility], [address], [place], [address], Vahe Weber MD Received: 03/12/2020 at 05:45:00 QTE : [facility], [address], [place], [address], Vahe Weber MD Received: 03/12/2020 at 05:45:00 QTE : [facility], [address], [place], [address], Vahe Weber MD Received: 03/12/2020 at 05:45:00 QTE : [facility], [address], [place], [address], Vahe Weber MD Received: 03/12/2020 at 05:45:00 QTE : [facility], Thomas Carter, [place], [address], Vahe Weber MD Received: 03/12/2020 at 05:45:00 QTE : [facility], Thomas Carter, [place], [address], Vahe Weber MD Received: 03/12/2020 at 05:45:00 QTE : [facility], Thomas Carter, [place], [address], Vahe Weber MDDNR Name Value Range Interpretation [...] results) Automated count ID Date Data Source [id number] 03/12/2020 11:15:00 AM EDT [facility] FASTING: UNKNOWNReceived: 03/12/2020 at 05:45:00 QTE: [facility] [place], [address], Vahe Weber MD Received: 03/12/2020 at 05:45:00 QTE : [facility], [address], Vahe Weber MD Received: 03/12/2020 at 05:45:00 QTE : [facility], [address], Vahe Weber MD Received: 03/12/2020 at 05:45:00 QTE : [facility], [address], Vahe Weber MD Received: 03/12/2020 at 05:45:00 QTE : [facility], Thomas Carter, [place], [address], Vahe Weber MD Received: 03/12/2020 at 05:45:00 QTE : [facility], Thomas Carter, [place], [address], Vahe Weber MD Received: 03/12/2020 at 05:45:00 QTE : [facility], Thomas Carter, [place], [address], Vahe Weber MD Received: 03/12/2020 at 05:45:00 QTE : [facility], Thomas Carter, [place], [address], Vahe Weber MD Received: 03/12/2020 at 05:45:00 QTE : [facility], Thomas Carter, [place], [address], Vahe Weber MD Received: 03/12/2020 at 05:45:00 QTE : [facility], Thomas Carter, [place], [address], Vahe Weber MD Received: 03/12/2020 at 05:45:00 QTE : [facility], Thomas Carter, [place], [address], Vahe Weber MD Received: 03/12/2020 at 05:45:00 QTE : [facility], Thomas Carter, [place], [address]Vahe MD Received: 03/12/2020 at 05:45:00 QTE : [facility], Thomas Carter, [place], [address], Vahe Weber MDDNR Name Value Range Interpretation Description Data Source(s ) Supporting Code Document(s ) INR in Platelet 1.0 Normal (applies to [facility] poor plasma by non-numeric Diagnostics Coagulation results) assay Reference Range 0.9- 1.1Moderate-intensity Warfarin Therapy 2.0-3.0Higher-intensity Warfarin Therapy 3.0-4.0 Prothrombin time (PT) 10.4 sec 9.0-11.5 Normal (applies to [facility] non-numeric results) For more information on this test, go to:http://education.Aniways /faq/WPD031 ID Date Data Source [id number] 03/12/2020 11:15:00 AM EDT [facility] FASTING: UNKNOWNReceived: 03/12/2020 at 05:45:00 QTE: [facility], [place], [address], Vahe Weber MD Received: 03/12/2020 at 05:45:00 QTE : [facility], [place], [address], Vahe Weber MD Received: 03/12/2020 at 05:45:00 QTE : [facility], [place], [address], Vahe Weber MD Received: 03/12/2020 at 05:45:00 QTE : [facility], [place], [address], Vahe Weber MD Received: 03/12/2020 at 05:45:00 QTE : [facility], [place], [address], Vahe Weber MD Received: 03/12/2020 at 05:45:00 QTE : [facility], [place], [address], Vahe Weber MD Received: 03/12/2020 at 05:45:00 QTE : [facility], [place], [address], Vahe Weber MD Received: 03/12/2020 at 05:45:00 QTE : [facility], [place], [address], Vahe Weber MD Received: 03/12/2020 at 05:45:00 QTE : [facility], [place], [address]Vahe MD Received: 03/12/2020 at 05:45:00 QTE : [facility], [address]Vahe MD Received: 03/12/2020 at 05:45:00 QTE : [facility], [place], [address]Vahe MD Received: 03/12/2020 at 05:45:00 QTE : [facility] [place], [address]Vahe MD Received: 03/12/2020 at 05:45:00 QTE : [facility], [place], [address]Vahe MDDNR Name Value Range Interpretation Description Data [...] diagnosis of diabet es in children.According to [place] [employer] (ADA)guidelines, hemoglobin A1c <7.0% represents optimalcontrol in non- diabetic patients. Differen tmetrics may apply to specific patient populations.Standards of Medical Care in Diabetes(ADA). ID Date Data Source [id number] 03/12/2020 11:15:00 AM EDT [facility] FASTING: UNKNOWNReceived: 03/12/2020 at 05:45:00 QTE: [facility], [place], [address]Vahe MD Received: 03/12/2020 at 05:45:00 QTE : [facility], [address], [place], [address], Vahe Weber MD Received: 03/12/2020 at 05:45:00 QTE : [facility], [address], [place], [address], Vahe Weber MD Received: 03/12/2020 at 05:45:00 QTE : [facility], [address], [place], [address], Vahe Weber MD Received: 03/12/2020 at 05:45:00 QTE : [facility], [address], [place], [address], Vahe Weber MD Received: 03/12/2020 at 05:45:00 QTE : [facility], [address], [place], [address], Vahe Weber MD Received: 03/12/2020 at 05:45:00 QTE : [facility], [address], [place], [address], Vahe Weber MD Received: 03/12/2020 at 05:45:00 QTE : [facility], [address], [place], [address], Vahe Weber MD Received: 03/12/2020 at 05:45:00 QTE : [facility], [address], [place], [address], Vahe Weber MD Received: 03/12/2020 at 05:45:00 QTE : [facility], [address], [place], [address], Vahe Weber MD Received: 03/12/2020 at 05:45:00 QTE : [facility], [address], [place], [address], Vahe Weber MD Received: 03/12/2020 at 05:45:00 QTE : [facility], [address], [place], [address], Vahe Weber MD Received: 03/12/2020 at 05:45:00 QTE : [facility], [address], Vahe Weber MDDNR Name Value Range Interpretation Code Description Data Lily rce(s) Supporting Document(s ) Color of YELLOW Normal (applies to [facility] non-numeric [facility] results) The preferred specimen for urinalysis is urinepreserved using a [facility] standard urine preservativetube (yellow capped, blue ba nd) that may be obtainedfrom your [facility] supplier.Please review resul ts with caution. [...]
[2020-03-18] MEDS ORDERED: VASOPRESSIN 20 UNITS/ML VIAL IV ONE (08:02)
[2020-03-18] MEDS ORDERED: ceFAZolin SODIUM 1 GM VIAL ONE (09:04)
[2020-03-18] MEDS ORDERED: LIDOCAINE HCL/PF 2% SDV 5ML VIAL ONE (09:04)
[2020-03-18] MEDS ORDERED: DEXAMETHASONE SOD PHOSPHATE 4 MG/1 ML VIAL ONE ×2 (09:04→09:43)
[2020-03-18] MEDS ORDERED: SODIUM CHLORIDE 0.9% P/F 10 ML VIAL IJ ONE (09:04)
[2020-03-18] MEDS ORDERED: PROPOFOL 20 ML ONE ×2 (09:05)
[2020-03-18] MEDS ORDERED: MIDAZOLAM HCL 2 MG/2 ML SINGLE DOSE VIAL ONE ×2 (09:05)
[2020-03-18] MEDS ORDERED: KETOROLAC TROMETHAMINE 30 MG/1 ML VIAL ONE (09:43)
[2020-03-18] MEDS ORDERED: LIDOCAINE HCL 2% (20ML MULTI-DOSE VIAL) ONE (09:53)
--- NOTE | 2020-03-18 10:19 | OP ---
Operative Note - Note: Operative Date: 03/18/20 Pre-Operative Diagnosis: Stress Incontinence Operation: Mid urethral sling placement Findings: grade 1 cystocele Post-Operative Diagnosis: Same as Pre-op Surgeon: Patric Hall MD. Anesthesia: General Drains & Tubes with Location: artis to SD
[2020-03-18] MEDS ORDERED: ONDANSETRON 4 MG/2 ML VIAL IVPUSH PRN (10:26)
[2020-03-18] MEDS ORDERED: LACTATED RINGERS SOLUTION 1,000 ML IV SCH (10:30)
[2020-03-18] MEDS ORDERED: ELECTROLYTE-148 SOLN 1,000 ML IV SCH (10:30)
--- NOTE | 2020-03-18 12:01 | OP ---
DATE OF OPERATION: 03/18/2020 PREOPERATIVE DIAGNOSIS: Stress incontinence. POSTOPERATIVE DIAGNOSIS: Stress incontinence. PROCEDURE: Midurethral sling placement. HISTORY: This is a very pleasant 50-year-old female with a history of stress incontinence with a leak point pressure of 62 mmHg. Patient also was noted to have a small cystocele. After discussing treatment options the patient elected to undergo a sling placement only. Risks and benefits of treatment and alternative treatments were discussed in detail including but not limited to reoperation, erosion, bladder perforation and to de jodee urge incontinence. BRIEF OPERATIVE NOTE: Patient was brought to the operating room and placed in the supine position. Once general anesthesia was administered, the patient was transferred to the dorsal lithotomy position, prepped and draped in standard sterile fashion. Intravenous Ancef was given. A timeout was performed. At this time a Yates catheter was placed to suction drainage. A stay suture was placed in the labia bilaterally. Pitressin approximately 3 mL was given to hydrodistend the plane between the anterior vaginal wall and the surrounding tissue. A transverse incision was made into the anterior vaginal wall approximately 1 cm proximal to the meatus. The anterior wall was dissected carefully off of the periurethral tissue. Space was created bilaterally to identify the obturator foramen carefully. At this time an Altis sling was placed in the standard fashion. A 2-0 Vicryl suture was used to fix the sling material in the midurethral position. There was no evidence of active bleeding. The sling was placed in standard fashion without difficulty. At this time the anterior vaginal wall was trimmed and specimen was given off. The vaginal wall was then closed using 2-0 Vicryl in a running fashion. The Yates was then left to straight drainage and a vaginal packing was placed. Patient was brought to recovery room in stable and satisfactory condition. Samantha [id number]
[2020-03-18] MEDS ORDERED: GLYCOPYRROLATE 0.2 MG/1 ML VIAL ONE (13:07)
[2020-03-18] MEDS ORDERED: GLYCOPYRROLATE 1 MG/5 ML VIAL IM ONE (14:10)
[2020-03-18 17:45] VITALS: BP 136/80; PULSE 72; TEMP 98.8
--- NOTE | 2020-03-20 17:44 | PATH ---
Surgical Pathology Report Patient Name: YVONNE LEBRON [facility]. Rec. #: [id number] /Age/Gender: 1970 (Age: 50) / F Account: [id number] Location: [facility] SURGICAL Taken: 03/18/2020 Received: 03/18/2020 Reported: 03/20/2020 Physicians: Patric Hall M.D. Specimen(s) Received VAGINAL MUCOSA Clinical History Urinary incontinence Final Diagnosis ANTERIOR PORTION OF VAGINAL WALL, MID SUBURETHRAL SLING: VAGINAL SQUAMOUS MUCOSA WITH PATCHY MILD TO MODERATE CHRONIC FOCAL ACUTE INFLAMMATION AND FOCAL PARAKERATOSIS. Electronically Signed By Sherley Love M.D. Gross Description Received in formalin labeled "anterior portion of vaginal wall," is a 2.5 x 1.0 x 0.8 cm ramirez-pizano, irregular portion of soft tissue, consistent with a portion of vaginal wall. [employer] sections are submitted in one cassette. 03/19/2020 saudi03/19/2020
== END 2020-03-18 15:00 | disposition home or self-care (01) ==
LOC: JASU-SURG 04:51
PROVIDERS: ATTEND Urology
PROC: 0TSD0ZZ Reposition Urethra, Open Approach (ICD-10-PCS; principal; 2020-03-18 09:30)
DX: N39.3 Stress incontinence (female) (male) (principal)
CPT/HCPCS: 57288; C1771; 84703; 88302-TC; 94760

== ENCOUNTER 2020-04-29 04:48 | Day surgery (SDC) | payer OTHER ==
[2020-04-29 10:13] VITALS: BMI 26.5
[2020-04-29] MEDS ORDERED: ceFAZolin SODIUM 1 GM VIAL ONE (12:49)
[2020-04-29] MEDS ORDERED: MIDAZOLAM HCL 2 MG/2 ML SINGLE DOSE VIAL ONE (12:49)
[2020-04-29] MEDS ORDERED: ceFAZolin SODIUM 1 GM VIAL IVPB ONE (13:20)
[2020-04-29] MEDS ORDERED: LIDOCAINE 1%/EPI 1:100000 (50 ML MULTI DOSE VIAL) ONE (13:28)
[2020-04-29] MEDS ORDERED: LIDOCAINE HCL 1%, 10 MG/ML (20ML VIAL) ONE (13:28)
[2020-04-29] MEDS ORDERED: DEXAMETHASONE SOD PHOSPHATE 4 MG/1 ML VIAL ONE (13:30)
[2020-04-29] MEDS ORDERED: KETOROLAC TROMETHAMINE 30 MG/1 ML VIAL ONE (13:30)
[2020-04-29] MEDS ORDERED: BACITRACIN 15 GM TUBE TOPICAL OINTMENT ONE (13:35)
[2020-04-29] MEDS ORDERED: BACITRACIN 15 GM TUBE TOPICAL OINTMENT TP ONE (13:39)
[2020-04-29] MEDS ORDERED: LIDOCAINE 1%/EPI 1:100000 (20 ML MULTI DOSE VIAL) IJ ONE (13:40)
[2020-04-29] MEDS ORDERED: ONDANSETRON 4 MG/2 ML VIAL IVPUSH PRN (14:06)
[2020-04-29] MEDS ORDERED: LACTATED RINGERS SOLUTION 1,000 ML IV SCH (14:15)
[2020-04-29 15:51] VITALS: TEMP 97.8
[2020-04-29 17:21] VITALS: BP 88/52; PULSE 50
== END 2020-04-29 17:15 | disposition home or self-care (01) ==
LOC: JASU-SURG 04:48
PROVIDERS: ATTEND Urology
PROC: 0TSD0ZZ Reposition Urethra, Open Approach (ICD-10-PCS; principal; 2020-04-29 11:30)
DX: T83.712A Erosion of implanted urethral mesh to surrounding organ or tissue, initial encounter (principal); N94.10 Unspecified dyspareunia; R10.2 Pelvic and perineal pain
CPT/HCPCS: 81025; 88300-TC; 94760

== ENCOUNTER 2021-02-17 10:00 | Inpatient (IN) | payer OTHER ==
[2021-03-16 16:02] VITALS: BMI 26.5
[2021-03-17] MEDS ORDERED: HEPARIN NA (PORCINE) 5,000 UNITS/ML 1ML VIAL ONE ×2 (07:20→10:09)
[2021-03-17] MEDS ORDERED: BUPIVACAINE LIPOSOME/PF (EXPAREL) 266 MG/20 ML VIAL ONE (07:20)
[2021-03-17] MEDS ORDERED: PAPAVERINE HCL 30 MG/1 ML 10 ML VIAL NR ONE (07:20)
[2021-03-17] MEDS ORDERED: BUPIVACAINE HCL/PF 0.25% (2.5MG/ML) 10 ML VIAL ONE (07:21)
[2021-03-17] MEDS ORDERED: ISOSULFAN BLUE 50 MG/5 ML VIAL SQ ONE (07:44)
[2021-03-17] MEDS ORDERED: PROPOFOL 20 ML ONE ×8 (08:34→16:38)
[2021-03-17] MEDS ORDERED: LIDOCAINE HCL/PF 2% SDV 5ML VIAL ONE (08:34)
[2021-03-17] MEDS ORDERED: DESFLURANE GAS 240 ML BOTTLE IH ONE ×2 (08:35→12:08)
[2021-03-17] MEDS ORDERED: SODIUM CHLORIDE 0.9% P/F 10 ML VIAL IJ ONE (08:43)
[2021-03-17] MEDS ORDERED: ROCURONIUM BROMIDE 50 MG/5 ML SYRINGE ONE ×4 (08:45→14:12)
[2021-03-17] MEDS ORDERED: MIDAZOLAM HCL 2 MG/2 ML SINGLE DOSE VIAL ONE (09:34)
[2021-03-17] MEDS ORDERED: fentaNYL CITRATE 250 MCG/5 ML VIAL ONE (09:34)
[2021-03-17] MEDS ORDERED: ceFAZolin SODIUM 1 GM VIAL IVPB ONE ×3 (09:45→16:00)
[2021-03-17] MEDS ORDERED: ceFAZolin SODIUM 1 GM VIAL ONE ×4 (09:54→20:16)
[2021-03-17] MEDS ORDERED: HEPARIN NA (PORCINE) 5,000 UNITS/ML 1ML VIAL SQ ONE (10:05)
[2021-03-17] MEDS ORDERED: ACETAMINOPHEN INJECTION 100 ML IVPB ONE (10:10)
[2021-03-17] MEDS ORDERED: DEXAMETHASONE SOD PHOSPHATE 4 MG/1 ML VIAL ONE ×2 (10:18→16:07)
[2021-03-17] MEDS ORDERED: METHYLENE BLUE 50 MG/10 ML AMPUL ONE ×2 (14:03→17:37)
[2021-03-17] MEDS ORDERED: BUPIVACAINE HCL/PF 2.5 MG/ML - 30 ML VIAL IJ ONE (16:37)
[2021-03-17] MEDS ORDERED: BUPIVACAINE LIPOSOME/PF (EXPAREL) 266 MG/20 ML VIAL NR ONE (16:37)
[2021-03-17] MEDS ORDERED: NEOSTIGMINE METHYLSULFATE 0.5 MG/ML - 10 ML MDV ONE (17:27)
[2021-03-17] MEDS ORDERED: HYDROmorphone HCl 2 MG/ML VIAL ONE (17:39)
[2021-03-17] MEDS ORDERED: PROMETHAZINE HCL 25 MG/1 ML VIAL IVPUSH PRN (19:01)
[2021-03-17] MEDS ORDERED: ONDANSETRON 4 MG/2 ML VIAL IVPUSH PRN (19:01)
[2021-03-17] MEDS ORDERED: DEXTROSE 5%-0.45% SALINE 1,000 ML IV SCH (19:15)
[2021-03-17] MEDS ORDERED: HYDROmorphone *PCA* 10MG/50ML DISP.SYRIN PCA SCH (19:15)
[2021-03-17] MEDS ORDERED: LACTATED RINGERS SOLUTION 1,000 ML IV SCH (19:15)
[2021-03-17] MEDS ORDERED: HYDROmorphone *PCA* 10MG/50ML DISP.SYRIN ONE (19:20)
[2021-03-17] MEDS: CEFAZOLIN 1 GM in DEXTROSE 5%-WATER - 1 GM/50 ML IVPB IVPB SCH (21:30)
[2021-03-17] MEDS: DOCUSATE SODIUM 100 MG CAPSULE (FP) PO SCH (22:13)
[2021-03-18] MEDS: MUPIROCIN 2% TOPICAL OINTMENT FOR DECOLONIZATION NS SCH ×3 (00:30→21:45)
[2021-03-18] MEDS: CEFAZOLIN 1 GM in DEXTROSE 5%-WATER - 1 GM/50 ML IVPB IVPB SCH ×4 (02:51→21:45)
[2021-03-18 06:44] LABS: BASO % 0.3 % (0-2.0); EOS % 0.1 % (0-4.5); HEMOGLOBIN 8.9 GM/dL (10.7-15.3); LYMPH % 16.6 % (8-40); MCH 23.5 pg (25.7-33.7); MCHC 32.7 g/dl (32.0-36.0); MEAN CELL VOLUME 71.7 fl (80-96); MONO % 9.9 % (3.8-10.2); NEUT % 73.1 % (42.8-82.8); PLATELET COUNT 280 10^3/uL (134-434); RBC 3.77 M/mm3 (3.60-5.2); RDW 20.2 % (11.6-15.6); WHITE BLOOD COUNT 9.4 K/mm3 (4.0-10.0)
[2021-03-18 06:50] LABS: ALBUMIN 2.5 g/dl (3.4-5.0); BLOOD UREA NITROGEN 8.1 mg/dL (7-18); MAGNESIUM 1.6 mg/dL (1.8-2.4)
[2021-03-18 06:53] LABS: PHOSPHOROUS 3.2 mg/dL (2.5-4.9)
[2021-03-18 06:54] LABS: CREATININE 0.6 mg/dL (0.55-1.3)
[2021-03-18 06:55] LABS: BILIRUBIN,TOTAL 0.6 mg/dL (0.2-1); TOT PROT 5.6 g/dl (6.4-8.2)
[2021-03-18] MEDS: DEXTROSE 5%-0.45% SALINE 1,000 ML IV SCH (07:05)
[2021-03-18] MEDS ORDERED: ceFAZolin SODIUM 1 GM VIAL ONE ×3 (08:48→21:32)
[2021-03-18] MEDS ORDERED: DEXTROSE 5%-WATER - 50 ML IVPB ONE ×3 (08:48→21:33)
[2021-03-18] MEDS: ENOXAPARIN NA (PORCINE) 40 MG/0.4 ML DISP.SYRIN SQ SCH (09:17)
[2021-03-18] MEDS: DOCUSATE SODIUM 100 MG CAPSULE (FP) PO SCH ×2 (09:17→23:03)
[2021-03-18] MEDS: ASPIRIN 325 MG TABLET PO SCH (10:07)
[2021-03-18] MEDS ORDERED: HYDROmorphone *PCA* 10MG/50ML DISP.SYRIN PCA PRN (10:10)
[2021-03-18] MEDS: ONDANSETRON 4 MG TABLET PO SCH ×3 (11:36→23:04)
[2021-03-18] MEDS ORDERED: FAMOTIDINE 10 MG TABLET PO ONE (14:15)
[2021-03-18] MEDS: CHLORHEXIDINE GLUCONATE 4% CLEANSER FOR DECOLONIZATION TP SCH (23:04)
[2021-03-19] MEDS ORDERED: ceFAZolin SODIUM 1 GM VIAL ONE ×3 (02:58→14:06)
[2021-03-19] MEDS ORDERED: DEXTROSE 5%-WATER - 50 ML IVPB ONE ×3 (02:59→14:06)
[2021-03-19] MEDS: CEFAZOLIN 1 GM in DEXTROSE 5%-WATER - 1 GM/50 ML IVPB IVPB SCH ×4 (03:19→21:31)
[2021-03-19] MEDS: ONDANSETRON 4 MG TABLET PO SCH ×4 (03:51→21:33)
[2021-03-19 07:02] LABS: BASO % 0.6 % (0-2.0); EOS % 0.2 % (0-4.5); HEMATOCRIT 25.7 % (32.4-45.2); HEMOGLOBIN 8.4 GM/dL (10.7-15.3); LYMPH % 12.2 % (8-40); MCH 23.5 pg (25.7-33.7); MCHC 32.6 g/dl (32.0-36.0); MEAN PLT VOLUME 9.1 fl (7.5-11.1); MONO % 10.5 % (3.8-10.2); NEUT % 76.5 % (42.8-82.8); PLATELET COUNT 221 10^3/uL (134-434); RBC 3.56 M/mm3 (3.60-5.2); RDW 20.6 % (11.6-15.6); WHITE BLOOD COUNT 7.9 K/mm3 (4.0-10.0)
[2021-03-19 07:23] LABS: ALBUMIN 2.4 g/dl (3.4-5.0); BLOOD UREA NITROGEN 6.2 mg/dL (7-18); MAGNESIUM 1.9 mg/dL (1.8-2.4)
[2021-03-19 07:26] LABS: CREATININE 0.5 mg/dL (0.55-1.3); PHOSPHOROUS 2.5 mg/dL (2.5-4.9)
[2021-03-19 07:27] LABS: BILIRUBIN,TOTAL 0.3 mg/dL (0.2-1); TOT PROT 5.8 g/dl (6.4-8.2)
[2021-03-19] MEDS: DEXTROSE 5%-0.45% SALINE 1,000 ML IV SCH (08:30)
[2021-03-19] MEDS: ACETAMINOPHEN 500 MG TABLET (FP) PO SCH ×3 (08:31→21:32)
[2021-03-19] MEDS: ENOXAPARIN NA (PORCINE) 40 MG/0.4 ML DISP.SYRIN SQ SCH (09:41)
[2021-03-19] MEDS: ASPIRIN 325 MG TABLET PO SCH (09:41)
[2021-03-19] MEDS: DOCUSATE SODIUM 100 MG CAPSULE (FP) PO SCH ×2 (09:41→21:33)
[2021-03-19] MEDS: MUPIROCIN 2% TOPICAL OINTMENT FOR DECOLONIZATION NS SCH ×2 (09:42→21:32)
[2021-03-19] MEDS: oxyCODONE HCL 5 MG TABLET PO PRN ×3 (09:49→18:34)
[2021-03-19 13:33] LABS: ANISOCYTOSIS 1+; MACROCYTOSIS 0; PLATELET ESTIMATE NORMAL
[2021-03-19] MEDS ORDERED: PCA PUMP NR ONE ×2 (17:17→18:28)
[2021-03-19] MEDS ORDERED: PT OWN MED DRAWER 7, Y5N ONE (21:29)
[2021-03-19] MEDS: CHLORHEXIDINE GLUCONATE 4% CLEANSER FOR DECOLONIZATION TP SCH (21:32)
[2021-03-20] MEDS: ACETAMINOPHEN 500 MG TABLET (FP) PO SCH ×3 (02:24→14:52)
[2021-03-20] MEDS: CEFAZOLIN 1 GM in DEXTROSE 5%-WATER - 1 GM/50 ML IVPB IVPB SCH ×3 (02:28→15:07)
[2021-03-20] MEDS: oxyCODONE HCL 5 MG TABLET PO PRN ×3 (05:14→13:46)
[2021-03-20] MEDS: ONDANSETRON 4 MG TABLET PO SCH ×3 (06:19→15:42)
[2021-03-20] MEDS: DEXTROSE 5%-0.45% SALINE 1,000 ML IV SCH (08:06)
[2021-03-20 08:50] LABS: BASO % 0.3 % (0-2.0); HEMATOCRIT 24.7 % (32.4-45.2); LYMPH % 17.2 % (8-40); MCH 23.7 pg (25.7-33.7); MCHC 32.5 g/dl (32.0-36.0); MEAN CELL VOLUME 73.1 fl (80-96); MEAN PLT VOLUME 8.6 fl (7.5-11.1); MONO % 8.5 % (3.8-10.2); PLATELET COUNT 215 10^3/uL (134-434); RBC 3.38 M/mm3 (3.60-5.2); RDW 20.3 % (11.6-15.6); WHITE BLOOD COUNT 7.4 K/mm3 (4.0-10.0)
[2021-03-20] MEDS ORDERED: ceFAZolin SODIUM 1 GM VIAL ONE ×2 (09:04→14:55)
[2021-03-20] MEDS ORDERED: DEXTROSE 5%-WATER - 50 ML IVPB ONE ×2 (09:04→14:56)
[2021-03-20 09:11] LABS: BLOOD UREA NITROGEN 5.3 mg/dL (7-18); CALCIUM 7.9 mg/dL (8.5-10.1); MAGNESIUM 1.9 mg/dL (1.8-2.4)
[2021-03-20 09:13] LABS: ALBUMIN 2.3 g/dl (3.4-5.0)
[2021-03-20 09:14] LABS: CREATININE 0.4 mg/dL (0.55-1.3); PHOSPHOROUS 2.3 mg/dL (2.5-4.9)
[2021-03-20 09:15] LABS: BILIRUBIN,TOTAL 0.4 mg/dL (0.2-1)
[2021-03-20] MEDS: MUPIROCIN 2% TOPICAL OINTMENT FOR DECOLONIZATION NS SCH (09:17)
[2021-03-20] MEDS: DOCUSATE SODIUM 100 MG CAPSULE (FP) PO SCH (09:17)
[2021-03-20] MEDS: ENOXAPARIN NA (PORCINE) 40 MG/0.4 ML DISP.SYRIN SQ SCH (09:17)
[2021-03-20] MEDS: ASPIRIN 325 MG TABLET PO SCH (09:17)
[2021-03-20 09:18] LABS: TOT PROT 5.9 g/dl (6.4-8.2)
[2021-03-20 14:35] VITALS: BP 114/60; PULSE 72; TEMP 97.9
== END 2021-03-20 17:47 | disposition home or self-care (01) | DRG 581 ==
LOC: J2C 03-17 04:17 → JICU 03-17 21:39
PROVIDERS: ADMIT Surgery; ATTEND Surgery
PROC: 0HTV0ZZ Resection of Bilateral Breast, Open Approach (ICD-10-PCS; principal; 2021-03-18)
PROC: 07B60ZX Excision of Left Axillary Lymphatic, Open Approach, Diagnostic (ICD-10-PCS; 2021-03-18)
PROC: 0HRV077 Replacement of Bilateral Breast using Deep Inferior Epigastric Artery Perforator Flap, Open Approach (ICD-10-PCS; 2021-03-19)
PROC: 4A1GXSH Monitoring of Skin and Breast Vascular Perfusion using Indocyanine Green Dye, External Approach (ICD-10-PCS; 2021-03-19)
DX: D05.82 Other specified type of carcinoma in situ of left breast (principal); Z90.13 Acquired absence of bilateral breasts and nipples; R50.9 Fever, unspecified; D64.9 Anemia, unspecified; R11.0 Nausea
CPT/HCPCS: 36415; 78195-TC; 80053; 82962; 83735; 84100; 85025; 86850; 86900; 86901; 88307-TC; 88341-TC; 94010; 94760; 97116-GP; 97161-GP; A9541; J0131; J1644; Q9968